=== PATIENT | female | born 1975 | race Caucasian/White ===

== ENCOUNTER → 2020-05-07 | Outpatient (CLI) | payer OTHER ==
--- NOTE | 2020-05-08 04:11 | MR ---
EXAMINATION TYPE: MR ankle RT wo con DATE OF EXAM: 05/07/2020 COMPARISON: HISTORY: Right foot pain, Arch thru top of ankle/Foot area. Rt Foot occult fx, Dorsal navicular/First TMT Multiplanar multiecho imaging of the right ankle was performed without contrast. There is mild ankle joint and subtalar joint effusion. There is an Achilles tendon is intact. There i s some fluid anterior to the Achilles tendon probably extension of the joint effusion. The plantar fascia appears normal. Tarsal bones have fairly normal signal pattern. There is no edema. There is no evidence of fracture line. The medial and lateral collateral ligaments appear intact. The medial and lateral flexor tendons of the ankle appear intact. There is some fluid around the medi al flexor tendons. There is mild subcutaneous edema around the anterior medial aspect of the distal t ibia. There is no evidence of soft tissue mass. IMPRESSION: Ankle joint effusion consistent with synovitis. Fluid around the flexor pollicis tendon consistent wi th tenosynovitis. No fracture. No evidence of ligament or tendon tear. No evidence of any significant arthritic disease .
== END | disposition home or self-care (01) ==
LOC: RADMRIMAIN 08:58
PROVIDERS: ATTEND Orthopaedic Surgery
DX: S92.901D Unspecified fracture of right foot, subsequent encounter for fracture with routine healing (principal)

== ENCOUNTER 2023-08-10 16:34 | Emergency (ER) | payer OTHER ==
--- NOTE | 2023-08-10 18:35 | ED ---
Skin/Abscess/FB HPI - General Chief complaint: Skin/Abscess/Foreign Body Stated complaint: boil on bottom Time Seen by Provider: 08/10/23 18:32 Source: patient, RN notes reviewed Mode of arrival: ambulatory Limitations: no limitations - History of Present Illness Initial comments: Patient's 47-year-old female presented ER with chief complaint of a boil. Patient states it is on her bottom and between her vagina and anus. Patient was seen at urgent care on 08/08/23, and was prescribed Keflex and Bactrim. No other complaints at this time. - Related Data Allergies Allergy/AdvReac Type Severity Reaction Status Date / Time No Known Allergies Allergy Verified 08/10/23 17:12 Review of Systems ROS Statement: Those systems with pertinent positive or pertinent negative responses have been documented in the HPI. ROS Other: All systems not noted in ROS Statement are negative. Past Medical History Past Medical History: No Reported History History of Any Multi-Drug Resistant Organisms: None Reported Past Surgical History: No Surgical Hx Reported Past Psychological History: No Psychological Hx Reported Smoking Status: Current every day smoker Past Alcohol Use History: Occasional Past Drug Use History: Marijuana General Exam Limitations: no limitations General appearance: alert, in no apparent distress Skin exam: Present: other (5 cm abscess noted on right buttock ) Course Vital Signs 08/10/23 08/10/23 17:08 18:48 Temperature 98.1 F 98.2 F Pulse Rate 83 72 Respiratory 18 17 Rate Blood Pressure 133/88 120/91 O2 Sat by Pulse 98 99 Oximetry Procedures - Incision & Drainage Consent Obtained: verbal consent Site: buttock Size (cm): 5 Anesthetic Used: lidocaine 1% Amount (mLs): 5 I&D Cleaning Method: Alcohol Wipe Sterile Field Used?: Yes Scalpel Used: #11 Ultrasound used: No Needle Aspiration Performed?: No Irrigation Performed?: No I&D Drainage Obtained: Pus, Blood Patient Tolerated Procedure: well, no complications Medical Decision Making - Medical Decision Making Was pt. sent in by a medical professional or institution (, PA, [facility], urgent care, hospital, or group home...) When possible be specific @ -No Did you speak to anyone other than the patient for history (EMS, parent, family, police, friend...)? What history was obtained from this source @ -No Did you review nursing and triage notes (agree or disagree)? Why? @ -I reviewed and agree with nursing and triage notes Were old charts reviewed (outside hosp., previous admission, EMS record, old EKG, old radiological studies, urgent care reports/EKG's, group home records)? Report findings @ -No old charts were reviewed Differential Diagnosis (chest pain, altered mental status, abdominal pain women, abdominal pain men, vaginal bleeding, weakness, fever, dyspnea, syncope, headache, dizziness, GI bleed, back pain, seizure, CVA, palpatations, mental health, musculoskeletal)? @ -Cellulitis, abscess, ingrown hair EKG interpreted by me (3pts min.). @ -None X-rays interpreted by me (1pt min.). @ -None done CT interpreted by me (1pt min.). @ -None done U/S interpreted by me (1pt. min.). @ -None done What testing was considered but not performed or refused? (CT, X-rays, U/S, labs)? Why? @ -None What meds were considered but not given or refused? Why? @ -None Did you discuss the management of the patient with other professionals (professionals i.e. , PA, [facility], lab, RT, psych nurse, clinical social worker, extermination inspector, teacher, bank officer, disability case manager)? Give summary @ -No Was smoking cessation discussed for >3mins.? @ -No Was critical care preformed (if so, how long)? @ -No Were there social determinants of health that impacted care today? How? (Homelessness, low income, unemployed, alcoholism, drug addiction, transporta tion, low edu. Level, literacy, decrease access to med. care, retirement, rehab)? @ -No Was there de-escalation of care discussed even if they declined (Discuss DNR or withdrawal of care, Hospice)? DNR status @ -No What co-morbidities impacted this encounter? (DM, HTN, Smoking, COPD, CAD, Cancer, CVA, ARF, Chemo, Hep., AIDS, mental health diagnosis, sleep apnea, morbid obesity)? @ -None Was patient admitted / discharged? Hospital course, mention meds given and route, prescriptions, significant lab abnormalities, going to OR and other pertinent info. @ -Discharged. Upon examination is a 5 cm abscess located on the right buttock. Patient was numbed using lidocaine and the area was lanced and drained. Patient will continue Bactrim and Keflex as prescribed from urgent care. Patient will be discharged in stable condition patient to follow-up with PCP. Undiagnosed new problem with uncertain prognosis? @ -No Drug Therapy requiring intensive monitoring for toxicity (Heparin, Nitro, Insulin, Cardizem)? @ -No Were any procedures done? @ -Yes Diagnosis/symptom? @ -Abscess Acute, or Chronic, or Acute on Chronic? @ -Acute Uncomplicated (without systemic symptoms) or Complicated (systemic symptoms)? @ -Uncomplicated Side effects of treatment? @ -No Exacerbation, Progression, or Severe Exacerbation? @ -No Poses a threat to life or bodily function? How? (Chest pain, [place], [place], pneumonia, PE, COPD, DKA, ARF, appy, cholecystitis, CVA, Diverticulitis, Homicidal, Suicidal, threat to staff... and all critical care pts) @ -No Disposition Clinical Impression: Abscess of buttock Disposition: HOME SELF-CARE Condition: Stable Instructions (If sedation given, give patient instructions): Abscess Incision and Drainage (ED) Additional Instructions: Please return to the Emergency Department if symptoms worsen or any other concerns. Please continue to take Bactrim and Keflex as prescribed by urgent care. Please follow-up with PCP. Is patient prescribed a controlled substance at d/c from ED?: No Referrals: None,Stated [Primary Care Provider] - 1-2 days Time of Disposition: 19:04
[2023-08-10] MEDS ORDERED: LIDOCAINE 1% INJ 10MG/ML (20 ML MDV) SQ ONE (18:38)
[2023-08-10 19:23] VITALS: BP 120/91; PULSE 72; RESP 17; TEMP 98.2
== END 2023-08-10 19:22 | disposition home or self-care (01) ==
LOC: EC 16:34
DX: L02.31 Cutaneous abscess of buttock (principal); F12.90 Cannabis use, unspecified, uncomplicated; F17.200 Nicotine dependence, unspecified, uncomplicated
CPT/HCPCS: 99282; 10060; J2001

== ENCOUNTER → 2024-01-30 | Outpatient (CLI) | payer OTHER ==
--- NOTE | 2024-01-30 16:26 | XR ---
EXAMINATION TYPE: XR elbow complete RT DATE OF EXAM: 01/30/2024 COMPARISON: None HISTORY: Pain TECHNIQUE: 3 view right elbow FINDINGS: Radius aligns normally with humerus. No acute fractures or dislocations are evident. Anteri or fat-pad is normal. No elevation of posterior fat pad is evident which is normal. Follow up exams can be performed as clinically indicated. IMPRESSION: 1. No acute osseous abnormality right elbow.
== END | disposition home or self-care (01) ==
LOC: RADXRMAIN 16:10
PROVIDERS: ATTEND Emergency Medicine
DX: M77.11 Lateral epicondylitis, right elbow (principal)

== ENCOUNTER → 2024-06-30 | Outpatient (CLI) | payer OTHER ==
--- NOTE | 2024-06-30 12:15 | XR ---
EXAMINATION TYPE: XR knee complete RT DATE OF EXAM: 06/30/2024 12:09 PM CLINICAL INDICATION: Female, 48 years old with history of [id number] SPRAIN RT KNEE; [facility] COMPARISON: None. TECHNIQUE: XR knee complete RT; examined in Frontal, lateral and oblique projections. FINDINGS: No evidence of any acute osseous pathology, soft tissue swelling, or joint effusion is no jey. Tricompartmental osteophyte formation involving the femoral condyles, tibial plateau and patella . Mild joint space narrowing. IMPRESSION: 1. No acute osseous pathology. 2. Mild tricompartmental osteoarthritic changes. [facility], , 06/30/2024 12:12 PM
== END | disposition home or self-care (01) ==
LOC: RADXRMAIN 11:48
PROVIDERS: ATTEND Emergency Medicine
DX: S83.91XA Sprain of unspecified site of right knee, initial encounter

== ENCOUNTER → 2024-07-08 | Outpatient (CLI) | payer OTHER ==
--- NOTE | 2024-07-10 10:24 | MR ---
EXAMINATION TYPE: MR knee RT wo con DATE OF EXAM: 07/08/2024 COMPARISON: None HISTORY: Rt knee outer pain, swelling and locking since Jun 28 TECHNIQUE: Multiplanar, multisequence imaging of the right knee is performed without IV contrast. FINDINGS: There is an acute fracture with bone marrow edema in the proximal tibial plateau without depression. 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 There are a few subchondra l cysts likely indicating small osteochondral defects. The cruciate and collateral ligaments are intact. There is a moderate joint effusion. Cartilage in the patellofemoral compartment is well preserved. Th e quadriceps and patellar tendons are intact. Posterolateral lateral to the mediofemoral condyle there is a multiloculated cyst approximately 1.7 c m in size possibly representing a large ganglion cyst. IMPRESSION: 1. Nondisplaced fracture of the lateral tibial plateau. 2. 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 3. Moderate joint effusion. 4. Probable ganglion cyst medial and posterolateral to the distal femur [facility], , 07/10/2024 10:21 AM
== END | disposition home or self-care (01) ==
LOC: RADMRIMAIN 08:35
PROVIDERS: ATTEND Emergency Medicine
DX: S83.91XD Sprain of unspecified site of right knee, subsequent encounter